=== PATIENT | female | born 1970 | race Hispanic/Latino ===

== ENCOUNTER 2021-02-23 06:04 | Day surgery (SDC) | payer OTHER ==
[~2021-02-23] VITALS: Ht 157.5 cm; Wt 70.3 kg
[~2021-02-23 06:04] MED LIST: AEC81 PO; BIOT5000 PO; CA C1TAB95 PO; EMPA1TAB9 PO; LOSA100T58 PO; METO25TA6 PO; PANT40TA54 PO; ROSU20TA31 PO; ROSU40TA21 PO
[2021-02-23] MEDS ORDERED: 0.9%NACL 1000ML 1,000 ML IV ONE (06:14)
[2021-02-23] MEDS ORDERED: ONDANSETRON 4MG INJ ONE (07:07)
[2021-02-23 07:49] VITALS: BP 108/73
[2021-02-23] MEDS ORDERED: PROPOFOL 10 MG/ML 20ML VIAL IV ONE ×2 (07:54→07:55)
[2021-02-23 08:05] VITALS: BP 104/70
[2021-02-23 08:10] VITALS: BP 108/69
[2021-02-23 08:15] VITALS: BP 112/70
[2021-02-23 08:20] VITALS: BP 116/69
[2021-02-23 08:30] VITALS: BP 114/68
== END 2021-02-23 08:32 | disposition home or self-care (01) ==
LOC: DAH 06:04 → ENDO 06:04
PROVIDERS: ATTEND Internal Medicine Gastroenterology
DX: Z12.11 Encounter for screening for malignant neoplasm of colon (principal); R94.5 Abnormal results of liver function studies; I10 Essential (primary) hypertension; E11.9 Type 2 diabetes mellitus without complications; I25.10 Atherosclerotic heart disease of native coronary artery without angina pectoris; I25.2 Old myocardial infarction; E78.5 Hyperlipidemia, unspecified; K80.20 Calculus of gallbladder without cholecystitis without obstruction; Z88.2 Allergy status to sulfonamides; Z91.040 Latex allergy status; Z98.891 History of uterine scar from previous surgery; Z98.890 Other specified postprocedural states; Z79.899 Other long term (current) drug therapy
CPT/HCPCS: 45378; 82948; 87635; 93005; A4215 ×2; A4221; A4222; A4223; A4606; A4620; A4657; A4663; C9803; J2405; J2704 ×2; J7030

== ENCOUNTER 2021-02-24 10:54 | Day surgery (SDC) | payer OTHER ==
[~2021-02-24] VITALS: Ht 157.5 cm; Wt 74.8 kg
[~2021-02-24 10:54] MED LIST changes: -ROSU20TA31 PO
[2021-02-24] MEDS ORDERED: 0.9%NACL 1000ML 1,000 ML IV ONE (11:24)
[2021-02-24 12:02] VITALS: BP 112/75
[2021-02-24] MEDS ORDERED: PROPOFOL 10 MG/ML 20ML VIAL IV ONE (12:56)
[2021-02-24 13:20] VITALS: BP 117/62
[2021-02-24 13:25] VITALS: BP 107/65
[2021-02-24 13:30] VITALS: BP 114/63
[2021-02-24 13:40] VITALS: BP 106/64
[2021-02-24 13:45] VITALS: BP 113/70
== END 2021-02-24 13:50 | disposition home or self-care (01) ==
LOC: ENDO 10:54 → DAH 10:54 → ENDO 13:50
PROVIDERS: ATTEND Internal Medicine
DX: Z12.11 Encounter for screening for malignant neoplasm of colon (principal); K63.5 Polyp of colon; R94.5 Abnormal results of liver function studies; I10 Essential (primary) hypertension; I25.10 Atherosclerotic heart disease of native coronary artery without angina pectoris; I25.2 Old myocardial infarction; E78.5 Hyperlipidemia, unspecified; E11.9 Type 2 diabetes mellitus without complications; Z79.01 Long term (current) use of anticoagulants; Z95.0 Presence of cardiac pacemaker; Z98.891 History of uterine scar from previous surgery; Z79.82 Long term (current) use of aspirin; Z79.899 Other long term (current) drug therapy; Z98.890 Other specified postprocedural states
CPT/HCPCS: 45385; 82948; A4215 ×2; A4221; A4222; A4223; A4606; A4620; A4657; A4663; J2704; J7030